=== PATIENT | female | born 1945 | race Caucasian/White ===

== ENCOUNTER 2022-02-08 20:11 | Emergency (ER) | payer OTHER, MEDICAID ==
[~2022-02-08] VITALS: Ht 152.4 cm; Wt 66.2 kg
[2022-02-08 20:20] VITALS: BP_SYST 135
--- NOTE | 2022-02-08 21:34 | NUR ---
Patient to ER bed [facility] 1 to gown for evaluation. Side rails up. Report given to CRISTINO NORIEGA.
--- NOTE | 2022-02-08 21:36 | NUR ---
Pt presents to ER with R knee, R hip and R wrist pain after slip and fall , denies KO, skin pink and warm, cap refill <3, VSS, will cont to monitor.
--- NOTE | 2022-02-08 23:40 | NUR ---
OLEGARIO Mccallum at bedside examining patient.
--- NOTE | 2022-02-09 00:57 | NUR ---
Patient given written and verbal discharge instructions and verbalizes understanding. ER MD discussed with patient the results and treatment provided. Patient in stable condition. ID arm band removed. no Rx of given. Patient educated on pain management and to follow up with PMD. Pain Scale 0/10. Opportunity for questions provided and answered. Medication side effect fact sheet provided.
[2022-02-09 01:01] VITALS: BP_SYST 129
== END 2022-02-09 01:01 | disposition home or self-care (01) ==
LOC: SED 20:11
DX: S63.641A Sprain of metacarpophalangeal joint of right thumb, initial encounter (principal); S70.01XA Contusion of right hip, initial encounter; S80.01XA Contusion of right knee, initial encounter; E11.9 Type 2 diabetes mellitus without complications; I10 Essential (primary) hypertension; Z88.5 Allergy status to narcotic agent; Z88.6 Allergy status to analgesic agent; Z79.899 Other long term (current) drug therapy; W01.0XXA Fall on same level from slipping, tripping and stumbling without subsequent striking against object, initial encounter; Y93.89 Activity, other specified; Y92.89 Other specified places as the place of occurrence of the external cause; Y99.8 Other external cause status
CPT/HCPCS: 99283

== ENCOUNTER 2022-11-15 19:34 | Emergency (ER) | payer OTHER, MEDICAID ==
[~2022-11-15] VITALS: Ht 154.9 cm; Wt 0.9 kg
[2022-11-15 19:49] VITALS: BP_SYST 122; PULSE 100; RESP 18; TEMP 97.8; O2SAT 96
[2022-11-15] MEDS ORDERED: BACITRACIN ZINC 15 GM TOPICAL OINTMENT TP ONE (23:30)
[2022-11-15] MEDS ORDERED: MORPHINE 4 MG INJ. 4 MG/ML VIAL IM ONE (23:30)
[2022-11-15] MEDS ORDERED: ONDANSETRON 4 MG ODT TAB PO ONE (23:30)
[2022-11-15] MEDS ORDERED: BACITRACIN 1 GM OINT TP ONE (23:36)
[2022-11-15 23:48] VITALS: BP_SYST 140; PULSE 78; RESP 18; TEMP 98.3; O2SAT 97
[2022-11-16] MEDS ORDERED: ACET-2634 PO (00:55)
== END 2022-11-16 01:31 | disposition home or self-care (01) ==
LOC: SED 19:34
DX: S00.33XA Contusion of nose, initial encounter (principal); S20.211A Contusion of right front wall of thorax, initial encounter; S80.11XA Contusion of right lower leg, initial encounter; E11.9 Type 2 diabetes mellitus without complications; I10 Essential (primary) hypertension; Z88.5 Allergy status to narcotic agent; Z88.6 Allergy status to analgesic agent; Z79.899 Other long term (current) drug therapy; W18.40XA Slipping, tripping and stumbling without falling, unspecified, initial encounter; Y93.89 Activity, other specified; Y92.89 Other specified places as the place of occurrence of the external cause; Y99.8 Other external cause status
CPT/HCPCS: 99285; 70450; 73590; 70486; 71250; 96372; 76376; Q0162; J2270